=== PATIENT | male | born 1970 | race Caucasian/White ===

== ENCOUNTER 2016-08-28 11:11 | Emergency (ER) | payer OTHER ==
[~2016-08-28] VITALS: Ht 177.8 cm; Wt 82.0 kg
--- NOTE | 2016-08-28 11:16 | PD ---
HPI Chief Complaint: Psyche Time Seen by Provider: 11:16 Travel History International Travel<30 days: No Contact w/Intl Traveler<30days: No Traveled to known affect area: No Mitch Perez Aug 28, 2016 11:16
[2016-08-28 11:32] VITALS: BP 172/99; PULSE 100; RESP 16; TEMP 98.7; O2SAT 96
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
[2016-08-28] MEDS ORDERED: SILVER SULFADIAZINE 1% CR 50 GM JAR TOPICAL ONE (11:45)
[2016-08-28] MEDS ORDERED: TETANUS/DIPHTHERIA TOXOID ADULT 0.5 ML VIAL IM ONE (11:45)
[2016-08-28 12:19] LABS: AUTOMATED NEUTROPHIL # 7.8 TH/MM3 (1.8-7.7); BASOPHIL % 0.4 % (0.0-2.0); EOSINOPHIL % 0.3 % (0.0-4.0); HEMATOCRIT 41.3 % (39.0-51.0); HEMO FLAGS DIFF FINAL; LYMPH % 14.6 % (9.0-44.0); LYMPHOCYTE # 1.5 TH/MM3 (1.0-4.8); MEAN CELL VOLUME 85.7 FL (80.0-100.0); MEAN CORPUSCULAR HEMOGLOBIN 30.4 PG (27.0-34.0); MEAN CORPUSCULAR HGB CONC 35.5 % (32.0-36.0); MONO % 7.9 % (0.0-8.0); NEUT % 76.8 % (16.0-70.0); PLATELET COUNT 232 TH/MM3 (150-450); RED BLOOD COUNT 4.81 MIL/MM3 (4.50-5.90); RED CELL DISTRIBUTION WIDTH 13.4 % (11.6-17.2); WHITE BLOOD COUNT 10.1 TH/MM3 (4.0-11.0)
[2016-08-28 12:40] LABS: BLOOD, URINE NEG (NEG); GLUCOSE,URINE NEG (NEG); HYALINE CAST, URINE 1 /lpf (RARE); KETONE, URINE 40 mg/dL (NEG); MUCUS URINE FEW /lpf (OCC); NITRITE,URINE NEG (NEG); URINE COLOR YELLOW (YELLW/STRAW)
[2016-08-28 12:42] LABS: AMPHETAMINE, URINE NEG (NEG); BARBITURATES, URINE NEG (NEG); COCAINE, URINE NEG (NEG)
[2016-08-28 12:45] LABS: COMMENT (UR) CULT NOT INDICATED; CULTURE IF INDICATED CULT NOT INDICATED
[2016-08-28 12:46] LABS: ANION GAP 8 MEQ/L (5-15); AST (GOT) 18 U/L (15-37); BICARBONATE 26.9 MEQ/L (21.0-32.0); BLOOD UREA NITROGEN 19 MG/DL (7-18); CHLORIDE 105 MEQ/L (98-107); GLOMERULAR FILTRATION RATE 74 ML/MIN (>89); POTASSIUM 3.7 MEQ/L (3.5-5.1); SODIUM (NA) 140 MEQ/L (136-145)
[2016-08-28 12:52] LABS: ALKALINE PHOSPHATASE 106 U/L (45-117); ALT (GPT) 26 U/L (12-78); TOTAL BILIRUBIN ADULT 0.3 MG/DL (0.2-1.0)
[2016-08-28 18:05] VITALS: BP 145/100; PULSE 100; RESP 18
[2016-08-28 23:26] VITALS: BP 160/92; PULSE 106; RESP 18; O2SAT 97
[2016-08-29] MEDS ORDERED: AMBI10TA PO (00:18)
[2016-08-29] MEDS ORDERED: SUBO8MIS SL (00:28)
[2016-08-29] MEDS ORDERED: oxyCODONE/ACETAMINOPHEN 5 MG/325 MG TAB PO ONE (00:45)
[2016-08-29] MEDS ORDERED: LORazepam 2 MG/ML VIAL IM ONE (00:45)
[2016-08-29 02:23] VITALS: BP 145/95; PULSE 77; RESP 18; TEMP 97.7; O2SAT 98
[2016-08-29 06:22] VITALS: BP 135/85; PULSE 78; RESP 18; TEMP 97.7; O2SAT 97
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
== END 2016-08-29 12:53 | disposition home or self-care (01) ==
LOC: NEDAMB 11:11 → NEPJ 08-29 12:53
DX: T22.211A Burn of second degree of right forearm, initial encounter (principal); T22.251A Burn of second degree of right shoulder, initial encounter; T21.23XA Burn of second degree of upper back, initial encounter; G89.29 Other chronic pain; F11.20 Opioid dependence, uncomplicated; Z23 Encounter for immunization; X08.8XXA Exposure to other specified smoke, fire and flames, initial encounter; Y93.9 Activity, unspecified; Y92.9 Unspecified place or not applicable
CPT/HCPCS: 16020; 80053; 80307; 81001; 84443; 85025; 90471; 90714; 96372; 99284; J2060; 80320